=== PATIENT | male | born 1985 | race Caucasian/White ===

== ENCOUNTER 2016-08-31 12:59 | Inpatient (IN) | payer MEDICARE, MEDICAID ==
--- NOTE | 2016-08-31 13:49 | ED ---
Psychiatric Complaint - HPI Summary HPI Summary: Patient is bipolar and presents with SI. He says he cycles through these thoughts every 6 months, even though he is compliant with his medications and is seeing his counselor regularly. He denies prior attempts, but does have a plan. He denies SI. He was hospitalized at [facility] over the summer. - History Of Current Complaint Chief Complaint: EDMentalHealth Time Seen by Provider: 08/31/16 13:33 Hx Obtained From: Patient Onset/Duration: Gradual Onset Timing: Constant Severity Initially: Severe Severity Currently: Severe Character: Depressed Aggravating Factor(s): Nothing Alleviating Factor(s): Nothing Associated Signs And Symptoms: Positive: Sleep Disturbance, Social Withdrawal Related History: Positive For: Prior Psychiatric Issues Has Suicidal: Reports: Thoughts, With A Plan - Allergies/Home Medications Allergies/Adverse Reactions: Allergies Allergy/AdvReac Type Severity Reaction Status Date / Time No Known Allergies Allergy Verified 08/31/16 20:47 Home Medications: Home Medications Bupropion HCl Xl 150 mg PO DAILY 08/31/16 [History Confirmed 08/31/16] Carvedilol 3.125 mg PO BID 08/31/16 [History Confirmed 08/31/16] Cimzia 200 mg SUBCUT 08/31/16 [History] Fluvoxamine Er 200 mg PO QAM 08/31/16 [History Confirmed 08/31/16] Latuda 80 mg PO BEDTIME 08/31/16 [History Confirmed 08/31/16] Levothyroxine TAB* 75 mcg PO QAM 08/31/16 [History Confirmed 08/31/16] Methylphenidate ER TAB* 54 mg PO QAM MDD 1 tablet 08/31/16 [History Confirmed ] Pantoprazole Sodium Dr 40 mg PO DAILY 08/31/16 [History Confirmed 08/31/16] Valsartan 160 mg PO DAILY 08/31/16 [History Confirmed 08/31/16] traZODone TAB* 50 mg PO BEDTIME 08/31/16 [History Confirmed 08/31/16] PMH/Surg Hx/FS Hx/Imm Hx Infectious Disease History: Yes Infectious Disease History: Denies: Traveled Outside the [place] in Last 30 Days - Family History Known Family History: Positive: None - Social History Occupation: Unemployed Lives: Alone Alcohol Use: None Substance Use Type: Reports: None Smoking Status (MU): Never Smoked Tobacco Review of Systems Positive: Depressed All Other Systems Reviewed And Are Negative: Yes Physical Exam Triage Information Reviewed: Yes Vital Signs On Initial Exam: Initial Vitals Temp Pulse Resp BP Pulse Ox 96.7 F 66 16 155/112 100 08/31/16 13:01 08/31/16 13:01 08/31/16 13:01 08/31/16 13:01 08/31/16 13:01 Vital Signs Reviewed: Yes Appearance: Positive: Well-Appearing, No Pain Distress, Well-Nourished Skin: Positive: Warm, Skin Color Reflects Adequate Perfusion, Dry, Soft Head/Face: Positive: Normal Head/Face Inspection Eyes: Positive: EOMI, BILLY, Conjunctiva Clear ENT: Positive: Hearing grossly normal Respiratory/Lung Sounds: Positive: Clear to Auscultation, Breath Sounds Present Cardiovascular: Positive: RRR Abdomen Description: Positive: Nontender, Soft Bowel Sounds: Positive: Present Musculoskeletal: Negative: Edema Left, Edema Right Neurological: Positive: Sensory/Motor Intact, Alert, Oriented to Person Place, Time, Normal Gait Psychiatric: Positive: Affect/Mood Appropriate - patient is cooperative, pleasant and engaging during exam AVPU Assessment: Alert Diagnostics - Vital Signs Vital Signs Temp Pulse Resp BP Pulse Ox 08/31/16 13:01 96.7 F 66 16 155/112 100 - Laboratory Result Diagrams: 08/31/16 14:00 08/31/16 14:00 Lab Statement: Any lab studies that have been ordered have been reviewed, and results considered in the medical decision making process. Course/Dx - Differential Dx/Clinical Impression Differential Diagnosis/HQI/PQRI: Positive: Acute Psychosis, Anxiety, Bipolar Disorder, Depression, Schizophrenia, Suicidal Ideation Provider Diagnosis: Persistent mood [affective] disorder, unspecified - Physician Notifications Patient Is Medically Stable For: Psych Evaluation Discharge - Discharge Plan Condition: Stable Disposition: ADMITTED TO [facility]
[2016-08-31 14:09] LABS: Hematocrit 48 % (42-52); Hemoglobin 16.1 g/dl (14.0-18.0); Mean Corpuscular HGB Conc 34 g/dl (31-36); Mean Corpuscular Hemoglobin 31 pg (27-31); Mean Corpuscular Volume 91 fL (80-94); Mean Platelet Volume 9 um3 (7.4-10.4); Red Blood Count 5.29 10^6/ul (4.0-5.4); Red Cell Distribution Width 14 % (10.5-15); White Blood Count 10.2 10^3/ul (3.5-10.8)
[2016-08-31 14:15] LABS: Urine Bacteria Absent (Absent); Urine Bilirubin Negative (Negative); Urine Glucose Negative (Negative); Urine Nitrite Negative (Negative)
[2016-08-31 14:25] LABS: ALT 20 U/L (7-52); AST 19 U/L (13-39); Albumin 4.2 g/dL (3.2-5.2); Alkaline Phosphatase 64 U/L (34-104); Anion Gap 4 mmol/L (2-11); BUN/Creatinine Ratio 15.6 (8-20); Blood Urea Nitrogen 26 mg/dL (6-24); CO2 Carbon Dioxide 29 mmol/L (22-32); Calcium 9.4 mg/dL (8.6-10.3); Chloride 104 mmol/L (101-111); EGFR African American 61.2 (>60); EGFR Non-African American 47.6 (>60); Globulin 2.9 g/dL (2-4); Glucose 81 mg/dL (70-100); Potassium 3.9 mmol/L (3.5-5.0); Sodium 137 mmol/L (133-145); Total Protein 7.1 g/dL (6.4-8.9)
[2016-08-31 14:32] LABS: Benzodiazepine Urine Screen None Detected (None Detect)
[2016-08-31 14:47] LABS: Acetaminophen < 15 mcg/mL; Alcohol < 10 mg/dL (<10); Salicylate < 2.50 mg/dL (<30)
[2016-08-31 14:57] LABS: TSH (Thyroid Stimulating Horm) 2.02 mcIU/mL (0.34-5.60)
[2016-08-31] MEDS ORDERED: traZODone TAB* 50 MG TAB PO PRN (23:59)
[2016-09-01] MEDS: Carvedilol TAB* 3.125 MG PO SCH ×3 (01:02→17:02)
[2016-09-01] MEDS: CMCS: Lurasidone (NF) 40 MG TAB PO SCH ×2 (01:03→20:42)
[2016-09-01] MEDS: Valsartan TAB* 160 MG PO SCH ×2 (01:04→20:41)
--- NOTE | 2016-09-01 01:57 | PN ---
Progress Note - Progress Note Note: Patient was a sign off from Niles Barnett PA-C. Patient is suicidal however stable without complaints at this time. Is being admitted to [facility] per mental health.
[2016-09-01] MEDS: Levothyroxine TAB* 75 MCG TAB PO SCH (06:05)
[2016-09-01] MEDS: Omeprazole CAP* 20 MG PO SCH (09:48)
[2016-09-01] MEDS: Methylphenidate ER TAB* 18 MG PO SCH (09:48)
[2016-09-01] MEDS: BuPROPion XL* 150 MG TAB.XL PO SCH (09:48)
--- NOTE | 2016-09-01 21:51 | HP ---
HISTORY AND PHYSICAL: DATE OF ADMISSION: 08/31/16 IDENTIFYING DATA: Herbert is a 31-year-old single, unemployed, domiciled, male, who drove himself to the hospital last night to request admission. CHIEF COMPLAINT: "I have been feeling lonely and hopeless!" HISTORY OF PRESENT ILLNESS: Herbert relates that he has previous diagnoses of bipolar disorder and ADHD and he was last admitted at [facility] [place] last February 2016 with similar symptoms. He endorses a 2-week history of low mood, increased sleep, decreased interest, feelings of worthlessness and helplessness and loneliness. He came to the hospital when he started having thoughts of suicide by taking an overdose of his pills.He denies substance abuse or nonadherence to his prescribed medication. He describes stressors of feeling isolated, longing for a relationship with a woman. 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 REVIEW OF PSYCHIATRIC SYMPTOMS: He describes patterns of feeling depressed and suicidal almost every 6 months. He denies difficulty with appetite, level of energy, attention, and concentration. Although he reports having a diagnosis of bipolar disorder, he denies having ever experienced manic or hypomanic symptoms. He endorses anxiety in social situations. He denies excessive worrying, feeling tense or irritable. He denies obsessive thoughts or compulsive rituals. He denies psychotic symptoms. He endorsed occasional paranoid ideation. PAST PSYCHIATRIC HISTORY: One admission here in 2004, was diagnosed with unspecified mood disorder with paranoid personality disorder. He had recent admission at [facility] [place] in February 2016 for 5 days again because of the depression and suicidal ideation. He reports diagnoses of depression and ADHD His outpatient care is at [facility] where he sees a therapist weekly and he sees Dr. Mckenna every 3 to 4 months. His last appointment was 2 months ago. He came in on methylphenidate ER 54 mg q.a.m., Wellbutrin 150 mg daily, Trazodone 50 mg at bedtime and Latuda 80 mg at bedtime. SUICIDE/HOMICIDE HISTORY: He denies previous brianna suicide attempt or history of self-injury. He denies any history of violence. He denies legal problems. PAST MEDICAL HISTORY: Remarkable for polycystic kidney disease, hypothyroidism , high blood pressure, and hypercholesterolemia. He is followed in [facility] by Dr. Rowdy Clements. MEDICATIONS: He is prescribed: 1. Carvedilol 3.125 mg b.i.d. 2. Levothyroxine 75 mcg p.o. daily. 3. Omeprazole 20 mg daily. 4. Valsartan 160 mg at bedtime. FAMILY HISTORY: The patient described family history of depression in his (now ) mother. Sister and nieces also have depression. He denies any family history of completed suicides. PERSONAL AND SOCIAL HISTORY: He was raised in [place], [place], by his single mother, who worked in this hospital as a nurse. He has one sister. He graduated high school, briefly attended [employer] for music , later returned for three semesters and then again stopped because of financial reasons. His father has never been a consistent presence in his life. Herbert reports being heterosexual. He denies currently dating, but asserts that he has been in relationships with women in the past, the longest relationship last 1-1/2 years and he has had intercourse with women in ways he finds satisfying. He enjoys [employer], video games, [employer], and working with children. He has aspiration of creating a band or being a member of a music band. 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 He quit his job last June because he no longer enjoyed it. He is receiving survivors benefits from social security that he uses to pay his bills. REVIEW OF MEDICAL SYMPTOMS: Negative. PHYSICAL EXAMINATION GENERAL: He is a moderately obese 31-year-old white male, who does not appear to be in any acute physical distress. He is alert and oriented x3. VITAL SIGNS: On admission, blood pressure 149/85, pulse is 63, respirations 18 , and temperature 97.3. HEENT: Head is atraumatic, normocephalic, symmetrical. Eyes: PERRLA. Tympanic membranes intact. Sclerae anicteric. Conjunctivae clear. NECK: Trachea midline, freely mobile. No cervical lymphadenopathy. No nuchal rigidity. LUNGS: Clear to auscultation bilaterally. HEART: Regular rate and rhythm. S1, S2. No murmurs, gallops, or rubs. BREAST EXAM: No mass or discharge. ABDOMEN: Soft and nontender. No mass, organomegaly, or rebound tenderness. No scars noted. Active bowel sounds in all four quadrants. EXTREMITIES: No clubbing, cyanosis, edema, or varicosities noted. Pulses are equal and adequate in all four extremities. NEUROLOGIC: Cranial nerves II through XII are intact. Cerebellar function intact. Muscle strength grade 5/5 in all four extremities. STRUCTURAL EXAM: The patient examined in both supine and upright positions. No gross AP or lateral asymmetry. Gait and movement are within normal limits. GENITALIA: Exam not performed. RECTAL: Exam not performed. SKIN: Skin texture, turgor, and pigmentation are within normal limits. 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 He is adequately groomed, casually dressed. He is oddly related, but is cooperative with the interview process. No abnormal movements are observed. He exhibits normal psychomotor activity. He endorses depressed mood. His affect is constricted. He also describes passive wish, but denies active suicidal ideation and he contracts for safety and reports feeling safe in this setting. He is alert and oriented to time, place, person. Attention, memory, and concentration are all fair. Fund of knowledge is adequate. Intelligence is estimated to be in normal range. LABORATORY DATA: On admission, his CBC was within normal limits. Complete metabolic panel shows BUN of 26 and creatinine of 1.67. TSH is normal at 2.02. Urinalysis shows 1+ protein and presence of squamous epithelial cells. Toxicology screen is negative for all the tested substances. SUMMARY: Third lifetime inpatient psychiatric admission for this 31-year-old male with a history of suicidal ideation, but no previous brianna attempt and no self- injury, current outpatient care at [facility], current trial of methylphenidate ER, Wellbutrin XL, Trazodone and Latuda, who was self-referred with complaints of worsening depressive symptoms and thoughts of taking an overdose of a prescribed medication. Medical history is remarkable for polycystic kidney disease, hypothyroidism, hypertension, hypercholesterolemia, and obesity. There is family history of depression in maternal relatives, but he is unaware of any family history of completed suicide. He described stressors of feeling lonely, being currently unemployed, recent falling out with three of his friends. During the interview, he presented as somewhat oddly related, he described a lifelong history impairment in his social interactions suggestive of an autism spectrum. DIAGNOSTIC IMPRESSIONS: 1. Unspecified depressive disorder. 2. Rule out Persistent depressive disorder. 3. Rule out Major depressive disorder, recurrent, moderate, without psychotic features. 4. Consideration for autism spectrum disorder. 5. Attention deficit/hyperactivity disorder, by history. TREATMENT PLAN: Admit to Mental Health Unit, 15-minute checks, full code status. Legal status is voluntary. Initiate comprehensive, milieu, individual, and group psychotherapeutic support, medication management will involve continuing his outpatient regimen of medication and contacting his outpatient psychiatric providers. Discharge planning will involve coordination of his aftercare with [facility]. [id number]/CPS #: [id number] JENNIFER
[2016-09-02] MEDS: Levothyroxine TAB* 75 MCG TAB PO SCH (06:40)
[2016-09-02] MEDS: Methylphenidate ER TAB* 18 MG PO SCH (08:51)
[2016-09-02] MEDS: BuPROPion XL* 150 MG TAB.XL PO SCH (08:51)
[2016-09-02] MEDS: Omeprazole CAP* 20 MG PO SCH (08:51)
[2016-09-02] MEDS: Carvedilol TAB* 3.125 MG PO SCH ×2 (08:51→16:11)
--- NOTE | 2016-09-02 19:49 | PN ---
Progress Note - Progress Note Note: Patient told there are two patients on the unit (did not disclose their names) who have tested positive for Influenza A and I am recommending taking Tamiflu as a prophylactic measure. I made it clear this was optional. He declined the treatment after hearing of the indications, risks, benefits and alternatives.
[2016-09-02] MEDS: CMCS: Lurasidone (NF) 40 MG TAB PO SCH (21:31)
[2016-09-02] MEDS: Valsartan TAB* 160 MG PO SCH (21:32)
[2016-09-03] MEDS: Levothyroxine TAB* 75 MCG TAB PO SCH (06:07)
[2016-09-03] MEDS: Methylphenidate ER TAB* 18 MG PO SCH (09:08)
[2016-09-03] MEDS: BuPROPion XL* 150 MG TAB.XL PO SCH (09:08)
[2016-09-03] MEDS: Omeprazole CAP* 20 MG PO SCH (09:08)
[2016-09-03] MEDS: Carvedilol TAB* 3.125 MG PO SCH ×2 (09:09→17:11)
[2016-09-03] MEDS: Oseltamivir CAP* 75 MG PO SCH (09:10)
--- NOTE | 2016-09-03 12:02 | PN ---
MHU: Group Therapy Note - Service Type Service Type: [id number] Group Psychotherapy - Herbert discussed relevant history in a topical fashion, disclosing his experience of having suicidal thoughts and seeking treatment. He denies ongoing SI, and expressed hopes of attaining discharge, citing quick improvement in mood and gratitude for his life and prospects.
--- NOTE | 2016-09-03 16:31 | PN ---
Subjective - Subjective Service Type: 15234 Hosp care 15 min low complexity Subjective: The patient says that he feels markedly better than the time of admission. "It' s helped me so much being around people who have the same problems." He feels safe going home and does request discharge. He is tolerating his medications well and states that he has good relationships with his providers at [facility], including his psychiatrist there, Dr. Mckenna. He denies SI or HI. Objective - Appearance Appearance: Well Developed/Nourished Dysmorphic Features: No Hygiene: Normal Grooming: Well Kept - Behavior Psychomotor Activities: Normal Exhibits Abnormal Movement: No - Attitude and Relatedness Attitude and Relatedness: Cooperative Eye Contact: Good - Speech Quality: Unpressured Latencies: Normal Quantity: Appropriate - Mood Patient's Decription of Mood: "Good" - Affect Observed Affect: Good Affect Consistent with: Euthymia - Thought Process Patient's Thought Process: Coherent Thought Content: No Passive Wish, No Suicidal Planning, No Homicidal Ideation, No Paranoid Ideation - Sensorium Experiencing Hallucinations: No, Sensorium is Clear Type of Hallucinations: Visual: No, Auditory: No, Command: No - Level of Consciousness Level of Consciousness: Alert Orientation: Yes Intact, Yes Orientated to Time, Yes Orientated to Place, Yes Orientated to Person - Impulse Control Impulse Control: Intact - Insight and Judgement Insight and Judgement: Good - Group Participation Particating in Group Activities: Yes - Medication Management Medication Management Adherence: Yes Assessment - Assessment Merits Inpatient Hospitalization: Consolidate Improvements, Pending Safe DC Plan Inpatient DSM-IV Dx: MDD, recurrent, severe without psychotic features. Clinical Impression: 31 y.o. single, white male with a history of depression admitted over the weekend voluntarily due to complaints of depression and SI. Plan - Plan Treatment Plan: Name: EPIFANIO KUHN Birthdate: 1985 [id number] The patient seems to have improved dramatically with conservative milieu treatment. He is tolerating meds well and requesting discharge. We will keep him an extra day to make sure his SI is resolved. Likely d/c to follow up with [facility]. Continued Medication Management: Continue Outpt Medication Medications: Current Medications Bupropion HCl (Wellbutrin Xl *) 150 mg PO DAILY GUI Last Admin: 09/03/16 09:08 Dose: 150 mg Carvedilol (Coreg Tab*) 3.125 mg PO BID WITH MEALS [facility] Last Admin: 09/03/16 09:09 Dose: 3.125 mg Levothyroxine Sodium (Synthroid Tab*) 75 mcg PO DAILY@0600 [facility] Last Admin: 09/03/16 06:07 Dose: 75 mcg Lurasidone HCl (Latuda (Nf)) 80 mg PO BEDTIME [facility] Last Admin: 09/02/16 21:31 Dose: 80 mg Methylphenidate HCl (Concerta Er Tab*) 54 mg PO DAILY [facility] Last Admin: 09/03/16 09:08 Dose: 54 mg Omeprazole (Prilosec Cap*) 20 mg PO DAILY@0730 [facility] Last Admin: 09/03/16 09:08 Dose: 20 mg Oseltamivir Phosphate (Tamiflu Cap*) 75 mg PO DAILY [facility] Stop: 09/12/16 09:01 Last Admin: 09/03/16 09:10 Dose: Not Given Trazodone HCl (Desyrel Tab*) 50 mg PO BEDTIME PRN PRN Reason: INSOMNIA Valsartan (Diovan Tab*) 160 mg PO BEDTIME [facility] Last Admin: 09/02/16 21:32 Dose: 160 mg - Discharge Plan Discharge Plan: Outpatient Follow Up
[2016-09-03] MEDS: CMCS: Lurasidone (NF) 40 MG TAB PO SCH (21:11)
[2016-09-03] MEDS: Valsartan TAB* 160 MG PO SCH (21:11)
[2016-09-04 07:45] VITALS: BP 148/88
[2016-09-04] MEDS: BuPROPion XL* 150 MG TAB.XL PO SCH (07:55)
[2016-09-04] MEDS: Omeprazole CAP* 20 MG PO SCH (07:55)
[2016-09-04] MEDS: Methylphenidate ER TAB* 18 MG PO SCH (07:55)
[2016-09-04] MEDS: Carvedilol TAB* 3.125 MG PO SCH (07:56)
[2016-09-04] MEDS: Levothyroxine TAB* 75 MCG TAB PO SCH (07:56)
--- NOTE | 2016-09-04 11:11 | PN ---
MHU: Group Therapy Note - Service Type Service Type: [id number] Group Psychotherapy - Cognitive Behavioral Group Therapy ( CBT):Patient was attentive and participatory in CBT programming this morning, and remained in good behavioral control. Patient expressed positive insights regarding relevant treatment interventions and goals.
[2016-09-04] MEDS: Oseltamivir CAP* 75 MG PO SCH (11:13)
--- NOTE | 2016-09-05 00:22 | DS ---
DISCHARGE SUMMARY: DATE OF ADMISSION: 08/31/16 DATE OF DISCHARGE: 09/04/16 DISCHARGE DIAGNOSES: As follows: Coldiron I: Unspecified depressive disorder, rule out major depressive disorder versus dysthymic disorder; attention deficit disorder by history. Coldiron II: Deferred. Coldiron III: Significant for polycystic kidney disease, hypothyroidism, high blood pressure, and hypercholesterolemia. Coldiron IV: Severe primary support stressors. Coldiron V: At the time of admission was 35 and at the time of discharge is 60. CONDITION AT THE TIME OF DISCHARGE: Stable. The patient is steadfastly denying suicidal ideations as he has done so far several days now. He states that the group setting has made him feel less isolated and he is eager to get out and see his therapist as well as his psychiatrist at [facility]. The patient is future oriented stating that he would like to go out and get a job working with children and he is certainly willing to continue his medications as well as other followup treatments in the community. MENTAL STATUS EXAM: At the time of discharge, the patient is a young white male , balding hair, who is clean and well-groomed, wearing a black T-shirt and jeans. He is calm and cooperative, easy to establish rapport with. Speech has normal rate, tone, and volume. Mood is euthymic with full affect. Thought process is linear and goal directed. Thought content is significant for his desire to leave the hospital and get a job in some type of capacity in which he can provide service and support to children. He denies suicidal or homicidal ideations. He denies auditory or visual hallucinations and there is no evidence of psychotic thinking. Insight and judgment appeared to be fair given his willingness to follow up with outpatient support. Cognitively, he is awake and alert with what appeared to be an average intellect. DISCHARGE INSTRUCTIONS: To the patient are as follows: A. Medications: The patient is takin. Concerta ER 54 mg p.o. q.a.m. 2. Wellbutrin 150 mg p.o. daily. 3. Trazodone 50 mg at nighttime. 4. Latuda 80 mg at nighttime. 5. Fluvoxamine 100 mg daily. 6. Carvedilol 3.125 mg twice daily. 7. Synthroid 75 mcg p.o. daily. 8. Omeprazole 20 mg daily. 9. Valsartan 160 mg p.o. q.h.s. B. Diet: Regular. C. Activities: As tolerated. The patient is a nonsmoker. D. Followup care: He will be following up with [facility] where his therapist is Yoan Tanner and his psychiatrist is Dr. Mckenna. These followups will both be within 1 week of discharge. HOSPITAL COURSE: PART A: Reason for admission: The patient is a 31-year-old single, unemployed , domicile white male, who drove himself to hospital last night requesting admission for suicidal ideations. He relates that he has a prior history of bipolar disorder and ADHD and was last admitted at [facility] in February of 2016 with similar symptoms. What he was endorsing at the time of admission was a 2-week history of low mood, increased sleep, decreased interest , feelings of worthlessness and helplessness as well as loneliness. He came to the hospital when he started having thoughts of suicide by taking an overdose of his pills. He denies substance abuse or nonadherence to his prescribed medications. He describes stressors of feeling isolated, longing for relationship with a woman. 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 PART B: Psychiatric treatment rendered: The patient was admitted to the adult behavioral health unit and placed on q.30-minute checks for his own safety. He was calm, cooperative, and polite throughout his hospitalization. The patient experienced a rather rapid resolution of his suicidality once he got on the unit and was an almost immediate participant in milieu activities. He is quite social with his peers, playing chess and board games, and discussing his peer difficulties with them in a supportive role. We noted that his affect brightened immediately upon introduction to the unit and he seemed to do well with social interactions. What he was telling me is that recently he ended three friendships because there were three people in his life who had been consistently borrowing money and not paying him back and taking advantage of his generosity by getting rides, places from him without reciprocating. He states that he does not need friendships like this and would like to be more collaborative with friends stating that he does have some friends who do not take advantage of him. He is saying at this point that he wants to reach out to those people in his life and build more social interactions with them. He is also looking to increase the amount of activities that he does socially through the [facility]. He does have followups in place with both of his clinicians there and he is requesting discharge indicating that he is safe to go home. We do not feel that there is any legal justification for keeping him any further on an involuntary basis and so he is discharged to the community to follow up in a less restrictive setting. [id number]/CPS #: [id number] JENNIFER
== END 2016-09-04 14:15 | disposition home or self-care (01) | DRG 881 ==
LOC: ED 12:59 → BSU 23:32
PROVIDERS: ADMIT Psychiatry & Neurology Psychiatry; ATTEND Psychiatry & Neurology Psychiatry
PROC: GZHZZZZ Group Psychotherapy (ICD-10-PCS; principal; 2016-08-31)
DX: F32.9 Major depressive disorder, single episode, unspecified (principal); Q61.3 Polycystic kidney, unspecified; F34.1 Dysthymic disorder; F90.9 Attention-deficit hyperactivity disorder, unspecified type; E03.9 Hypothyroidism, unspecified; I10 Essential (primary) hypertension; E78.00 Pure hypercholesterolemia, unspecified; F60.0 Paranoid personality disorder; Z81.8 Family history of other mental and behavioral disorders; E66.9 Obesity, unspecified; Z68.27 Body mass index [BMI] 27.0-27.9, adult
CPT/HCPCS: 36415; 80053; 80307; 80320; 80329; 81003; 81015; 84443; 85025; 90853; 99222; 99231; 99238; A9270-GY; G0480

== ENCOUNTER 2017-01-14 15:44 | Emergency (ER) | payer MEDICARE, MEDICAID ==
[2017-01-14] MEDS: LORazepam TAB(*) 1 MG PO ONE ×2 (16:12→16:14)
[2017-01-14 16:32] LABS: Benzodiazepine Urine Screen None Detected (None Detect)
--- NOTE | 2017-01-14 16:34 | ED ---
Psychiatric Complaint - HPI Summary HPI Summary: 31M presents with suicidal thoughts. He states he was going to overdose by taking all his medication. He states that last time he was admitted was here a couple months ago. He denies any substance abuse. He states that he has bipolar. He says this past years his bipolar does not feel well controlled. He can not identify a reason for these thoughts he is just fed up with everything. - History Of Current Complaint Chief Complaint: EDMentalHealth Time Seen by Provider: 01/14/17 16:00 - Allergies/Home Medications Allergies/Adverse Reactions: Allergies Allergy/AdvReac Type Severity Reaction Status Date / Time No Known Allergies Allergy Verified 08/31/16 20:47 Home Medications: Home Medications Carvedilol TAB* [Coreg TAB*] 3.125 mg PO BID 01/14/17 [History Confirmed ] Fluvoxamine Maleate [Fluvoxamine Maleate ER] 200 mg PO DAILY 01/14/17 [History Confirmed 01/14/17] Levothyroxine TAB* [Synthroid TAB*] 75 mcg PO 0800 01/14/17 [History Confirmed 01/14/17] Methylphenidate ER TAB* [Concerta ER TAB*] 54 mg PO QAM 01/14/17 [History Confirmed 01/14/17] PMH/Surg Hx/FS Hx/Imm Hx Endocrine/Hematology History: Reports: Hx Thyroid Disease Cardiovascular History: Reports: Hx Hypercholesterolemia, Hx Hypertension History: Reports: Other Problems/Disorders - "polycystic renal disease" Musculoskeletal History: Reports: Hx Arthritis Sensory History: Reports: Hx Contacts or Glasses Opthamlomology History: Reports: Hx Contacts or Glasses Psychiatric History: Reports: Hx of Violent Episodes Against Others Denies: Hx Eating Disorder Infectious Disease History: Denies: Traveled Outside the [place] in Last 30 Days - Family History Known Family History: Positive: None - Social History Alcohol Use: None Substance Use Type: Reports: None Smoking Status (MU): Never Smoked Tobacco Review of Systems Negative: Fever Negative: Chest Pain Negative: Shortness Of Breath Positive: Depressed All Other Systems Reviewed And Are Negative: Yes Physical Exam Triage Information Reviewed: Yes Vital Signs Reviewed: Yes Appearance: Positive: Well-Appearing Skin: Positive: Warm, Dry Head/Face: Positive: Normal Head/Face Inspection Eyes: Positive: Normal, Conjunctiva Clear ENT: Positive: Normal ENT inspection, Pharynx normal, TMs normal Respiratory/Lung Sounds: Positive: Clear to Auscultation, Breath Sounds Present Cardiovascular: Positive: Normal, RRR Abdomen Description: Positive: Nontender, Soft Bowel Sounds: Positive: Present - [place] Coma Scale Coma Scale Total: 15 Diagnostics - Laboratory Lab Results: Lab Results 01/14/17 Range/Units 15:57 Urine Opiates Screen None detected (None Detect) Ur Barbiturates Screen None detected (None Detect) Ur Phencyclidine Scrn None detected (None Detect) Ur Amphetamines Screen None detected (None Detect) U Benzodiazepines Scrn None detected (None Detect) Urine Cocaine Screen None detected (None Detect) U Cannabinoids Screen None detected (None Detect) Result Diagrams: 01/14/17 16:35 01/14/17 16:35 Lab Statement: Any lab studies that have been ordered have been reviewed, and results considered in the medical decision making process. Course/Dx - Course Course Of Treatment: 31M presents with suicidal thoughts. He states he was going to overdose by taking all his medication. He denies any substance abuse. He states that he has bipolar. He says this past years his bipolar does not feel well controlled. He can not identify a reason for these thoughts he is just fed up with everything. clear for MHE. signed out to nisreen Ramesh pending MHE - Differential Dx/Clinical Impression Differential Diagnosis/HQI/PQRI: Positive: Bipolar Disorder, Depression, Suicidal Ideation Provider Diagnosis: Persistent mood [affective] disorder, unspecified Discharge - Discharge Plan Condition: Good Disposition: OTHER Discharge Disposition Comment: signed out to Nisreen EDWARDS Referrals: Non Staff,Doctor [Primary Care Provider] -
[2017-01-14 16:42] LABS: Hematocrit 45 % (42-52); Hemoglobin 15.4 g/dl (14.0-18.0); Mean Corpuscular HGB Conc 34 g/dl (31-36); Mean Corpuscular Hemoglobin 31 pg (27-31); Mean Corpuscular Volume 91 fL (80-94); Mean Platelet Volume 9 um3 (7.4-10.4); Red Blood Count 4.96 10^6/ul (4.0-5.4); Red Cell Distribution Width 13 % (10.5-15); White Blood Count 9.5 10^3/ul (3.5-10.8)
[2017-01-14 16:55] LABS: Urine Bacteria Absent (Absent); Urine Bilirubin Negative (Negative); Urine Glucose Negative (Negative); Urine Nitrite Negative (Negative)
[2017-01-14 16:59] LABS: ALT 17 U/L (7-52); AST 19 U/L (13-39); Albumin 4.1 g/dL (3.2-5.2); Anion Gap 5 mmol/L (2-11); BUN/Creatinine Ratio 15.3 (8-20); Blood Urea Nitrogen 29 mg/dL (6-24); CO2 Carbon Dioxide 29 mmol/L (22-32); Calcium 9.4 mg/dL (8.6-10.3); Chloride 104 mmol/L (101-111); EGFR African American 52.8 (>60); Globulin 3.2 g/dL (2-4); Glucose 81 mg/dL (70-100); Potassium 4.4 mmol/L (3.5-5.0); Sodium 138 mmol/L (133-145); Total Protein 7.3 g/dL (6.4-8.9)
[2017-01-14 17:21] LABS: Acetaminophen < 15 mcg/mL; Alcohol < 10 mg/dL (<10); Salicylate < 2.50 mg/dL (<30)
[2017-01-14 18:52] LABS: Alkaline Phosphatase 61 U/L (34-104)
== END 2017-01-14 20:14 ==
LOC: ED 15:44
DX: F34.9 Persistent mood [affective] disorder, unspecified (principal); R45.851 Suicidal ideations; F32.9 Major depressive disorder, single episode, unspecified
CPT/HCPCS: 36415; 80053; 80307; 80320; 80329; 81003; 81015; 84443; 85025; 99283; A9270-GY; G0480

== ENCOUNTER 2018-03-26 11:09 | Inpatient (IN) | payer MEDICARE, MEDICAID ==
--- NOTE | 2018-03-26 12:04 | ED ---
Psychiatric Complaint - HPI Summary HPI Summary: This patient is a 33 year old M presenting to [facility] with a chief complaint of SI with a plan to take the entirety of his rx medications for the past month. Pt denies suicide attempt in the past, and endorses a desire for a MHE. - History Of Current Complaint Chief Complaint: EDMentalHealth Time Seen by Provider: 03/26/18 11:53 Hx Obtained From: Patient Onset/Duration: Gradual Onset, Lasting Weeks, Still Present Timing: Constant Severity Initially: Moderate Severity Currently: Moderate Character: Depressed Aggravating Factor(s): Nothing Alleviating Factor(s): Nothing Associated Signs And Symptoms: Positive: Negative Related History: Positive For: Prior Psychiatric Issues Has Suicidal: Reports: Thoughts, With A Plan. Denies: Demonstrates Gesture, Has Prior Attempt(s) Has Homicidal: Denies: Thoughts - Allergies/Home Medications Allergies/Adverse Reactions: Allergies Allergy/AdvReac Type Severity Reaction Status Date / Time No Known Allergies Allergy Verified 03/26/18 11:14 Home Medications: Home Medications BuPROPion XL* [Bupropion XL*] 300 mg PO QAM 03/26/18 [History Confirmed 03/26/18 ] Fluvoxamine Maleate [Fluvoxamine Maleate ER] 200 mg PO QAM 03/26/18 [History Confirmed 03/26/18] LORazepam TAB(*) [Ativan 0.5 MG TAB (*)] 0.5 mg PO TID PRN 03/26/18 [History Confirmed 03/26/18] Methylphenidate HCl [Concerta] 54 mg PO QAM 03/26/18 [History Confirmed 03/26/18 ] PMH/Surg Hx/FS Hx/Imm Hx Endocrine/Hematology History: Reports: Hx Thyroid Disease Cardiovascular History: Reports: Hx Hypercholesterolemia, Hx Hypertension Respiratory History: Denies: Hx Lung Cancer GI History: Denies: Hx Ileostomy History: Reports: Other Problems/Disorders - "polycystic renal disease" Musculoskeletal History: Reports: Hx Arthritis Sensory History: Reports: Hx Contacts or Glasses Denies: Hx Deafness Opthamlomology History: Reports: Hx Contacts or Glasses Denies: Hx Legally Blind EENT History: Denies: Hx Deafness Neurological History: Denies: Hx Dementia Psychiatric History: Reports: Hx of Violent Episodes Against Others Denies: Hx Eating Disorder Infectious Disease History: No Infectious Disease History: Denies: Traveled Outside the US in Last 30 Days - Family History Known Family History: Positive: Hypertension - Social History Occupation: Employed Part-time Lives: Alone Alcohol Use: None Hx Substance Use: No Substance Use Type: Reports: None Hx Tobacco Use: No Smoking Status (MU): Never Smoked Tobacco Review of Systems Negative: Fever Positive: no symptoms reported Positive: Depressed, Other - SI with plan All Other Systems Reviewed And Are Negative: Yes Physical Exam - Summary Physical Exam Summary: General: well-appearing, no pain distress Skin: warm, color reflects adequate perfusion, dry Head: normal Eyes: EOMI, BILLY ENT: normal Neck: supple, non-tender Respiratory: CTA, breath sounds present Cardiovascular: RRR Abdomen: soft, non-tender Bowel: present Musculoskeletal: normal, strength/ROM intact Neurological: sensory/motor intact, A&O x3 Psychological: affect/mood appropriate Triage Information Reviewed: Yes Vital Signs On Initial Exam: Initial Vitals Temp Pulse Resp BP Pulse Ox 97.5 F 69 12 155/89 97 03/26/18 11:11 03/26/18 11:11 03/26/18 11:11 03/26/18 11:11 03/26/18 11:11 Vital Signs Reviewed: Yes Diagnostics - Vital Signs Vital Signs Temp Pulse Resp BP Pulse Ox 03/26/18 11:11 97.5 F 69 12 155/89 97 - Laboratory Result Diagrams: 03/26/18 13:03 03/26/18 13:03 Lab Statement: Any lab studies that have been ordered have been reviewed, and results considered in the medical decision making process. Course/Dx - Differential Dx/Clinical Impression Provider Diagnosis: Depressive disorder, not elsewhere classified, Mental health problem - Physician Notifications Discussed Care Of Patient With: Darío Lowery Time Discussed With Above Provider: 14:21 Instructed by Provider To: Other - Per ANURADHA Terrazas, Pt will be admitted to the MHU on voluntary status with a dx of depressive disorder NOS. Discharge - Sign-Out/Discharge Documenting (check all that apply): Patient Departure - admit TO MHU All imaging exams completed and their final reports reviewed: No Studies - Discharge Plan Condition: Stable Disposition: ADMITTED TO [facility] - Billing Disposition and Condition Condition: STABLE Disposition: Admitted to [facility] - Attestation Statements Document Initiated by Scribe: Yes Documenting Scribe: Kam Thomas Provider For Whom Joel is Documenting (Include Credential): Dr. Kamari Hernández MD Scribe Attestation: I, Kam Thomas, scribed for Dr. Kamari Hernández MD on 03/26/18 at 1809. Scribe Documentation Reviewed: Yes Provider Attestation: The documentation as recorded by the Kam beyer accurately reflects the service I personally performed and the decisions made by me, Dr. Kamari Hernández MD
[2018-03-26 12:12] LABS: Urine Appearance Clear; Urine Blood 1+ (Negative); Urine Color Straw; Urine Ketones Negative (Negative); Urine Protein Negative (Negative); Urine Red Blood Cell Trace(0-2/hpf) (Absent); Urine Specific Gravity 1.012 (1.010-1.030); Urine Urobilinogen Negative (Negative); Urine White Blood Cell Absent (Absent)
[2018-03-26 13:10] LABS: ABS Basophils 0.1 10^3/ul (0-0.2); ABS Eosinophils 0.1 10^3/ul (0-0.6); ABS Lymphocytes 2.3 10^3/ul (1.0-4.8); ABS Monocytes 0.8 10^3/ul (0-0.8); ABS Neutrophils 7.1 10^3/ul (1.5-7.7); ABS Nucleated RBC 0 10^3/ul; Hematocrit 45 % (42-52); Hemoglobin 15.7 g/dl (14.0-18.0); Lymphocyte % 21.9 % (25-47); Mean Corpuscular HGB Conc 35 g/dl (31-36); Mean Corpuscular Hemoglobin 31 pg (27-31); Mean Corpuscular Volume 89 fL (80-94); Mean Platelet Volume 8.3 um3 (7.4-10.4); Nucleated Red Blood Cells % 0; Platelet Count 200 10^3/ul (150-450); Red Blood Count 5.06 10^6/ul (4.00-5.40); Red Cell Distribution Width 13 % (10.5-15); White Blood Count 10.4 10^3/ul (3.5-10.8)
[2018-03-26 13:28] LABS: EGFR Non-African American 36.9 (>60)
[2018-03-26] MEDS ORDERED: Acetaminophen TAB* 325 MG PO PRN (14:31)
[2018-03-26] MEDS ORDERED: hydrOXYzine HCL TAB* 50 MG PO PRN (14:33)
[2018-03-26] MEDS: Carvedilol TAB* 3.125 MG PO SCH (21:25)
[2018-03-27] MEDS: Levothyroxine TAB* 75 MCG TAB PO SCH (06:07)
[2018-03-27] MEDS: FluvoxaMINE (NF) 50 MG TAB PO SCH (10:10)
[2018-03-27] MEDS: Carvedilol TAB* 3.125 MG PO SCH ×2 (10:11→21:46)
[2018-03-27] MEDS: BuPROPion XL* 300 MG TAB.XL PO SCH (10:11)
[2018-03-27] MEDS ORDERED: clonazePAM TAB(*) 0.5 MG PO PRN (12:41)
--- NOTE | 2018-03-27 12:59 | HP ---
H&P (Free Text) History and Physical: JUSTIFICATION FOR ADMISSION: Patient presented to emergency room with suicidal ideation and plan to OD on his medications, worsening depression, isolation and loneliness. He requires inpatient psychiatric admission in order to provide treatment and stabilization as he is a danger to himself. CHIEF COMPLAINT: "I think I am lonely that is why I was having thoughts to overdose on my medications HISTORY OF THE PRESENT ILLNESS: Patient is a 33 y/o male, single, living by himself, employed at [employer] , with history of disorder mood symptoms and suicidal thoughts with plan?ADHD. Patient was admitted to inpatient unit for worsening of his depression, anhedonia, decrease energy level, socially withdrawn, losing interest in life, and was having suicidal thoughts with plan to overdose on his medications and was afraid of his safety. Patient drove to the hospital for a mhe and requested voluntary admission. Patient has been compliant with his medications and was requesting to be restarted on stimulatn as that helps him wake up from the effect of Latuda and Ativan. Patient reportedly has been struggling with social relationships especially has been craving for romanitc relationship. Clif has been going on websites to meet up groups or individual that shares his interest. Patient reports no manic symptoms. Patient reports no psychotic symptoms other than occasional paranoia in social situation. Patient denied any suicidal or homicidal ideation at this time on the unit. Patient continued to exhibit behavior that is in control and was asking for staff pass already. PAST PSYCHIATRIC HISTORY: Patient has history of multiple inpatient psychiatric hospitalization. Patient has history of compliance with outpatient psychiatric treatment at [facility] for both med management and therapy. Patients medication trials have been of stimulants, trazodone, latuda, zyprexa. Patient has history of suicidal thoughts and plan but no attempt. No history of self injurious behavior. Patient has history of no homicidal threats, intent or attempt. Patient has no history of aggressive and agitated behavior when decompensates. No access to firearm reported. Patient reports having a diagnosis of bipolar disorder, but he denied having ever experienced manic or hypomanic symptoms. He endorses anxiety in social situations. He denies excessive worrying, feeling tense or irritable. He denies obsessive thoughts or compulsive rituals. He denied psychotic symptoms other than transient and occasional paranoid ideation in social situations. SUBSTANCE ABUSE HISTORY: Patient reports no substance or alcohol abuse. 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 Urine toxicology was negative. PAST MEDICAL HISTORY: Adult Polycystic Kidney, HTN, Hypothyroidism, Dyslipidemia ALLERGIES: NKA FAMILY PSYCHIATRIC HISTORY: The patient described family history of depression in his (now ) mother. Patient reprots that she dies of ruptured brain aneurysm. Patient's sister and nieces also have depression. Patient denied any family history of completed suicides. Patient has no interaction with paternal side of his family. No known reported substance abuse in family. FAMILY/PSYCHOSOCIAL HISTORY: Patient currently lives by himself in [facility]. Patient is not but had previous 3 or 4 romantic relationship. Patient reprots longest last for about a year and a half. Patient is currently not in any relationship and has limited social or friends unga. Patient support system includes his sister's family and coworkers at his workplace. 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 Patient education level is three years of college but did not complete due to financial reasons. Patient was [place] [facility] by his single mother. Patient mother worked at the hospital as a nurse. Patient has one elder sister that he is in touch with. Patient gets along with her sister's family more than her sister. Patient has couple of aunt living at some distance and meet them infrequently but did report having a family reunion this summer. Patient enjoys videogames but recently has losing interest in that as well and craving for relationships. REVIEW OF SYSTEMS: Patients review of symptoms was negative for any physical complaint other than some discomfort in abdomen bilaterally around renal area. Patient vital signs reviewed, B.P has been some what elevated. Patients ED physical exam was reviewed which is grossly normal with chronic medical problem of polycystic kidney and uncontrolled HTN, hypothyroidism, dyslipidemia. Physical Exam Summary in E.D: General: well-appearing, no pain distress Skin: warm, color reflects adequate perfusion, dry Head: normal Eyes: EOMI, BILLY ENT: normal Neck: supple, non-tender Respiratory: CTA, breath sounds present Cardiovascular: RRR Abdomen: soft, non-tender Bowel: present Musculoskeletal: normal, strength/ROM intact Neurological: sensory/motor intact, A&O x3 MENTAL STATUS EXAMINATION: Appearance: 33 y/o male, appear stated age, making fair eye contact, cooperative , unkempt, fair hygiene Behavior: in control Gait: normal Abnormal motor activity: none Speech: normal tone and volume, normal rate and rhythm Mood: "lonely" Affect: depressed but reactive Thought process: coherent Thought Content: Suicidal/Homicidal ideation: denied Delusions: none but do rperots having some paranoia in social situations at work where he feels that people are talking bad about him. Obsessions: none Phobia: none Perceptual disturbance: none Attention: fair Orientation: grossly intact Concentration: fair Memory: fair Insight: fair Judgment: fair Impulse control: fair IMPRESSION: Patient with history of mood disorder, ?ADHD, suicidal thoughts and plan but no intent or attempt. Patient currently admitted due to worsening of his depression, anhedonia and suicidal ideation with plan. Patient has also struggled with social relationships and craves for them at this time and reports limited supportive social unga other than his sister's family. Patient is a danger to self if discharged hence will be stabilized on inpatient unit with medication adjustments and therapy. DIAGNOSES: Major Depressive Disorder, recurrent, severe, Personality A traits PLAN: Admit to U on Q 15 min observation. Patient is full code. Patient is on voluntary admission status Integrate patient into the milieu Individual and group psychotherapy MMPI and psychological consult with Dr. Mock. Social work consult for therapy and discharge planning Will hold family meeting with family to increase Data base, if needed. Patient gave informed consent to start the following medications: Patient was continued on his current medications. Patient will be started on Klonopin 0.5 mg BID PRN for benzodiazepine withdrawal. Will hold Stimulant due to concerns of mood instability. Also Hospitalist was called to address patient's Adult polycystic kidney and HTN , will f/u recommendations. Will continue to monitor and f/u for improvement and side effects. Salvador Vásquez MD Attending Psychiatrist
[2018-03-27] MEDS ORDERED: amLODIPine TAB* 5 MG PO ONE (13:40)
[2018-03-27 14:59] LABS: Urine Appearance Clear; Urine Blood 1+ (Negative); Urine Color Straw; Urine Ketones Negative (Negative); Urine Protein Negative (Negative); Urine Red Blood Cell 1+(3-5/hpf) (Absent); Urine Specific Gravity 1.012 (1.010-1.030); Urine Urobilinogen Negative (Negative); Urine White Blood Cell Trace(0-5/hpf) (Absent)
--- NOTE | 2018-03-27 15:59 | RAD ---
Indication: Polycystic kidney disease. Real-time sonography of the kidneys was performed. The right kidney measures 12.2 x 6.6 x 6.3 cm. Multiple cysts are present throughout the kidney. Findings are consistent with polycystic kidney disease. Upper pole cyst measures 3.8 x 3.1 x 3.3 cm. Lateral cyst measures 2.7 x 3.1 x 3.1 cm. Calculus is noted in the right renal hilum however no definite hydronephrosis is noted. The left kidney measures 11.2 x 5.7 x 5.1 cm. Innumerable calcifications are noted in the left kidney with the lower pole measuring 4.6 x 3.5 x 4.4 cm and 4.3 x 4.0 x 3.9 cm. Calcification is noted in the left renal hilum measuring up to 0.8 cm. No hydronephrosis is noted. IMPRESSION: Bilateral cysts with nonobstructing calculi in both kidneys. No hydronephrosis is noted.
--- NOTE | 2018-03-27 22:16 | CONS ---
CONSULTATION REPORT: DATE OF CONSULT: 03/27/18 PROVIDER: Maximiliano Davis NP ATTENDING PHYSICIAN: Dr. Patton (report dictated by Maximiliano Davis NP). REFERRING PHYSICIAN: Dr. Vásquez. PRIMARY CARE PROVIDER: No PCP. Per the patient, he was seeing Dr. Rowdy Clements; however, he was fired from that practice due to no shows. DENTAL ASSISTANT TEACHER: Dr. Larose, [place], [place]. REASON FOR CONSULT: Abdominal pain and history of polycystic kidney disease. HISTORY OF PRESENT ILLNESS: Mr. Abrams is a 33-year-old male who was admitted to the mental health unit on 03/26/18 after he presented to the emergency department with complaint of suicidal ideation. The patient has a past medical history of previous psychiatric admissions, mood disorder with paranoid personality disorder, depression, suicidal ideation, ADHD, polycystic kidney disease, hypothyroidism, hypertension, and hyperlipidemia. Hospital Medicine was asked to consult regarding the patient's concern of recently missed Nephrology appointment this past Saturday, noted mild hypertension on this admission, and the patient's complaint of "bilateral kidney pain." The patient was seen and evaluated in the unit and which the patient reports that he had had blood work a couple weeks ago in [place] and was to follow up with his swage toolsetter on Saturday; however, he missed that appointment due to oversleeping. It is noted that the patient's creatinine on admission appears to be around his baseline of 2 and which the patient confirms. The patient also reports that starting 2 to 3 months ago, in the morning only, worse upon waking, he has bilateral abdominal discomfort that appears to resolve throughout the day. He reports this as "kidney pain." He denies flank or back pain. Denies ever having this type of pain before in the past. He reports he did have a renal ultrasound several months ago, but this was prior to this pain starting. It has not gotten worse or any better over the past 2 to 3 months, but has remained consistent. He denies nausea, vomiting. No urinary symptoms. Denying dysuria, hematuria, increased urinary frequency. Denies fevers or chills. He also reports that he was taken off his valsartan due to his renal function within the last year and was not started on another medication. PAST MEDICAL HISTORY: 1. Polycystic kidney disease. 2. Hypothyroidism. 3. Hypertension. 4. Hyperlipidemia. 5. Depression. 6. Bipolar. 7. ADHD. 8. Personality disorder. 9. History of suicidal ideation. HOME MEDICATIONS: 1. Synthroid 75 mcg p.o. daily. 2. Coreg 3.125 mg p.o. b.i.d. 3. Concerta 54 mg p.o. q.a.m. 4. Bupropion XL 300 mg p.o. q.a.m. 5. Fluvoxamine maleate 200 mg p.o. q.a.m. 6. Ativan 0.5 mg p.o. t.i.d. p.r.n. Current medications reviewed and appreciated. FAMILY HISTORY: Reviewed and appreciated. SOCIAL HISTORY: Denies tobacco abuse. Rare alcohol use. He lists his sister as a person to notify, Jacquiesingh Slaughter. REVIEW OF SYSTEMS: A 14-point review of systems was performed. All the pertinent positives and negatives are mentioned in the history of present illness. Otherwise are negative. PHYSICAL EXAM: Vital Signs: Temperature 97.5, heart rate 62, respirations 18, pulse oximetry 98% on room air, blood pressure 148/84. General Appearance: A well- developed, 33-year-old male, alert and oriented x3, in no acute distress. HEENT: Head is normocephalic and atraumatic. Pupils are equal and reactive to light. Oropharynx is clear. Moist mucous membranes. Cardiac: S1, S2. Regular rate and rhythm. No murmur, rub, or gallop appreciated. No lower extremity edema noted. Lungs are clear to auscultation bilaterally with good aeration throughout. Abdomen: Slightly obese, soft, nontender. No CVA tenderness. Normal bowel sounds throughout. Extremities: Moves all extremities. Steady gait. Musculoskeletal: No spinal tenderness with palpation. Has good range of motion flexing and extending hips. Neuro: Alert and oriented x3. No focal deficits noted. DIAGNOSTIC STUDIES/LAB DATA: Please note these labs are from yesterday, . WBC is 10.4, RBC 5.06, Hgb 15.7, Hct 45, MCV 89, MCH 31, MCHC 35, RDW 13, platelet count 200. Sodium 137, potassium 4.1, chloride 106, carbon dioxide 29 , anion gap 2, BUN 31, creatinine 2.06, glucose 110, hemoglobin A1c 5.5, calcium 9.3. Total bilirubin 0.30, AST 16, ALT 18, alkaline phosphatase 61. Total protein 7.3, albumin 4.0. Triglycerides 170, cholesterol 147, HDL 35, LDL 78. TSH 0.79. Urinalysis: 1+ blood, otherwise unremarkable. ASSESSMENT AND PLAN: Mr. Abrams is a 33-year-old male with a past medical history of long-term polycystic kidney disease, hypertension, hyperlipidemia, hypothyroidism, and psychiatric disorders, who was admitted to behavioral health unit for suicidal ideation. Hospital Medicine was asked to consult regarding the patient's concern about missed Nephrology appointment, hypertension, and the patient's report of abdominal pain. 1. Abdominal pain. Most likely, this is secondary to his polycystic kidney disease. I could not elicit any pain on exam. This appears to be chronic in nature. We will obtain a renal ultrasound to assess kidneys. He did have a recent renal ultrasound in [place] approximately 5 or 6 months ago per the patient. We will try to obtain those record. Urinalysis shows 1+ blood, otherwise there are no signs of infection. 2. Polycystic kidney disease. In regards to the patient's concern about his missed Nephrology appointment, I instructed the patient to call himself or have the staff here call to reschedule his appointment. As well, it would great if we can have any records faxed to us. He was most concerned about his creatinine , which appears to be around his baseline. 3. Hypertension. As stated in the HPI, the patient was recently taken off his valsartan. His blood pressures are running a little high, systolically 130 to 150s. We will add on Norvasc and continue his Coreg at this time. 4. Hypothyroidism. Continue Synthroid. 5. DVT prophylaxis. Ambulatory. We will follow up on renal ultrasound. I have discussed with staff to call Dr. Larose's office in [place] to get records faxed to us. TIME SPENT: Approximately 45 minutes was spent on this consultation. MAXIMILIANO DAVIS, ORIENTOR [id number]/[facility] #: [id number] JENNIFER
[2018-03-28] MEDS: Al Hydrox/Mg Hydrox/Simet LIQ* 30 ML UDC PO PRN ×2 (00:35→12:07)
[2018-03-28] MEDS: Levothyroxine TAB* 75 MCG TAB PO SCH (05:57)
[2018-03-28 08:16] VITALS: BP 134/89
[2018-03-28] MEDS ORDERED: amLODIPine TAB* 5 MG PO SCH (09:00)
[2018-03-28] MEDS: BuPROPion XL* 300 MG TAB.XL PO SCH (09:38)
[2018-03-28] MEDS: Carvedilol TAB* 3.125 MG PO SCH (09:38)
[2018-03-28] MEDS: FluvoxaMINE (NF) 50 MG TAB PO SCH (09:39)
--- NOTE | 2018-03-28 12:42 | DS ---
Subjective - Subjective Service Types: 87[address] [facility] Day Mgmt simple under 30 min Discharge Date: 03/28/18 Subjective: JUSTIFICATION FOR ADMISSION: Patient presented to emergency room with suicidal ideation and plan to OD on his medications, worsening depression, isolation and loneliness. He requires inpatient psychiatric admission in order to provide treatment and stabilization as he is a danger to himself. CHIEF COMPLAINT: "I think I am lonely that is why I was having thoughts to overdose on my medications HISTORY OF THE PRESENT ILLNESS: Patient is a 33 y/o male, single, living by himself, employed at [employer] , with history of disorder mood symptoms and suicidal thoughts with plan?ADHD. Patient was admitted to inpatient unit for worsening of his depression, anhedonia, decrease energy level, socially withdrawn, losing interest in life, and was having suicidal thoughts with plan to overdose on his medications and was afraid of his safety. Patient drove to the hospital for a mhe and requested voluntary admission. Patient has been compliant with his medications and was requesting to be restarted on stimulatn as that helps him wake up from the effect of Latuda and Ativan. Patient reportedly has been struggling with social relationships especially has been craving for romanitc relationship. Clif has been going on websites to meet up groups or individual that shares his interest. Patient reports no manic symptoms. Patient reports no psychotic symptoms other than occasional paranoia in social situation. Patient denied any suicidal or homicidal ideation at this time on the unit. Patient continued to exhibit behavior that is in control and was asking for staff pass already. PAST PSYCHIATRIC HISTORY: Patient has history of multiple inpatient psychiatric hospitalization. Patient has history of compliance with outpatient psychiatric treatment at [facility] for both med management and therapy. Patients medication trials have been of stimulants, trazodone, latuda, zyprexa. Patient has history of suicidal thoughts and plan but no attempt. No history of self injurious behavior. Patient has history of no homicidal threats, intent or attempt. Patient has no history of aggressive and agitated behavior when decompensates. No access to firearm reported. Patient reports having a diagnosis of bipolar disorder, but he denied having ever experienced manic or hypomanic symptoms. He endorses anxiety in social situations. He denies excessive worrying, feeling tense or irritable. He denies obsessive thoughts or compulsive rituals. He denied psychotic symptoms other than transient and occasional paranoid ideation in social situations. SUBSTANCE ABUSE HISTORY: Patient reports no substance or alcohol abuse. 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 Urine toxicology was negative. PAST MEDICAL HISTORY: Adult Polycystic Kidney, HTN, Hypothyroidism, Dyslipidemia ALLERGIES: NKA FAMILY PSYCHIATRIC HISTORY: The patient described family history of depression in his (now ) mother. Patient reprots that she dies of ruptured brain aneurysm. Patient's sister and nieces also have depression. Patient denied any family history of completed suicides. Patient has no interaction with paternal side of his family. No known reported substance abuse in family. FAMILY/PSYCHOSOCIAL HISTORY: Patient currently lives by himself in [facility]. Patient is not but had previous 3 or 4 romantic relationship. Patient reprots longest last for about a year and a half. Patient is currently not in any relationship and has limited social or friends [place]. Patient support system includes his sister's family and coworkers at his workplace. 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 Patient education level is three years of college but did not complete due to financial reasons. Patient was raised in [place] around [facility] by his single mother. Patient mother worked at the hospital as a nurse. Patient has one elder sister that he is in touch with. Patient gets along with her sister's family more than her sister. Patient has couple of aunt living at some distance and meet them infrequently but did report having a family reunion this summer. Patient enjoys videogames but recently has losing interest in that as well and craving for relationships. REVIEW OF SYSTEMS: Patients review of symptoms was negative for any physical complaint other than some discomfort in abdomen bilaterally around renal area. Patient vital signs reviewed, B.P has been some what elevated. Patients ED physical exam was reviewed which is grossly normal with chronic medical problem of polycystic kidney and uncontrolled HTN, hypothyroidism, dyslipidemia. Physical Exam Summary in E.D: General: well-appearing, no pain distress Skin: warm, color reflects adequate perfusion, dry Head: normal Eyes: EOMI, BILLY ENT: normal Neck: supple, non-tender Respiratory: CTA, breath sounds present Cardiovascular: RRR Abdomen: soft, non-tender Bowel: present Musculoskeletal: normal, strength/ROM intact Neurological: sensory/motor intact, A&O x3 MENTAL STATUS EXAMINATION ON ADMISSION: Appearance: 33 y/o male, appear stated age, making fair eye contact, cooperative , unkempt, fair hygiene Behavior: in control Gait: normal Abnormal motor activity: none Speech: normal tone and volume, normal rate and rhythm Mood: "lonely" Affect: depressed but reactive Thought process: coherent Thought Content: Suicidal/Homicidal ideation: denied Delusions: none but do rperots having some paranoia in social situations at work where he feels that people are talking bad about him. Obsessions: none Phobia: none Perceptual disturbance: none Attention: fair Orientation: grossly intact Concentration: fair Memory: fair Insight: fair Judgment: fair Impulse control: fair IMPRESSION: Patient with history of mood disorder, ?ADHD, suicidal thoughts and plan but no intent or attempt. Patient currently admitted due to worsening of his depression, anhedonia and suicidal ideation with plan. Patient has also struggled with social relationships and craves for them at this time and reports limited supportive social [place] other than his sister's family. Patient is a danger to self if discharged hence will be stabilized on inpatient unit with medication adjustments and therapy. DIAGNOSIS On ADMISSION: Major Depressive Disorder, recurrent, severe, Personality A traits DIAGNOSIS ON DISCHARGE: Adjustment Disorder with depression and anxiety, Personality A traits Objective - Appearance Appearance: Healthy Appearing Dysmorphic Features: No Hygiene: Normal Grooming: Fairly Well Kept - Behavior Psychomotor Activities: Normal Exhibits Abnormal Movement: No - Attitude and Relatedness Attitude and Relatedness: Cooperative Eye Contact: Fair - Speech Quality: Unpressured Latencies: Normal Quantity: Appropriate - Mood Patient's Decription of Mood: "Okay" - Affect Observed Affect: Fair Affect Consistent with: Euthymia - Thought Process Patient's Thought Process: Coherent Thought Content: No Passive Wish, No Suicidal Planning, No Homicidal Ideation, No Paranoid Ideation - Sensorium Experiencing Hallucinations: No, Sensorium is Clear Type of Hallucinations: Visual: No, Auditory: No, Command: No - Level of Consciousness Level of Consciousness: Alert Orientation: Yes Intact, Yes Orientated to Time, Yes Orientated to Place, Yes Orientated to Person - Impulse Control Impulse Control: Intact - Insight and Judgement Insight and Judgement: Fair - Group Participation Particating in Group Activities: Yes - Medication Management Medication Management Adherence: Yes Treatment Course & Assessment Clinical Course & Impression: Patient with history of mood disorder, ?ADHD, suicidal thoughts and plan but no intent or attempt. Patient currently admitted due to worsening of his depression, anhedonia and suicidal ideation with plan. Patient has also struggled with social relationships and craves for them at this time and reports limited supportive social [place] other than his sister's family. Patient is a danger to self if discharged hence will be stabilized on inpatient unit with medication adjustments and therapy. Patient was admitted to [facility] on Q 15 min observation. Patient was on voluntary admission status. Patient quickly integrate into the milieu, individual and group psychotherapy. Patient gave informed consent to change his medications. Patient was continued on Wellbutrin XL 300 mg PO QAM and Fluovoxamine 200mg PO daily. Patient was tapered off from Benzodiazepine and discontinued from stimulant. Patient was given psychoedcation around medication changes and side effects that can alter his mood and worsen his anxiety. Patient agreed to it. Patient was started on Klonopin 0.5 mg BID PRN for benzodiazepine withdrawal but did not show any sign of withdrawal but some some anxiety. Also Hospitalist was called to address patient's Adult polycystic kidney and HTN. Patient was continue to monitor and followed up for improvement and side effects. Patient toelrated medication changes very well. Patient was feeling better, not suicidal and taking care of his need participating in treatment. Patient mood was stable, denied suicidal or homicidal ideation, not psychotic, not manic, appropriately social, attending groups, engaging well with staff and peers. Patient was offered further voluntary stay but he wanted to be discharged and had put in 72 hours notice. Patient was discussed with the team and was not a danger to self and others, caring for himself, hence he was discharged with plan to follow up outpatient treatment from both mental and physical health. Patient agreed with the plan. 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 Discharge Planning - Discharge Planning Discharge Plan: Outpatient Follow Up Recommendations for Continuing Care: Medication Management, Psychotherapy Medications: Current Medications Amlodipine Besylate (Norvasc Tab*) 5 mg PO DAILY [facility] Last Admin: 03/28/18 09:38 Dose: 5 mg Bupropion HCl (Bupropion Xl*) 300 mg PO QAM [facility] Last Admin: 03/28/18 09:38 Dose: 300 mg Carvedilol (Coreg Tab*) 3.125 mg PO BID [facility] Last Admin: 03/28/18 09:38 Dose: 3.125 mg Fluvoxamine Maleate (Fluvoxamine (Nf)) 200 mg PO QAM [facility] Last Admin: 03/28/18 09:39 Dose: 200 mg Levothyroxine Sodium (Synthroid Tab*) 75 mcg PO DAILY@0600 [facility] Last Admin: 03/28/18 05:57 Dose: 75 mcg Discharge Planning: Prescriptions provided for discharge [x] Yes [] No Follow up care details as per social work arrangements. Patient response to discharge plan: [x] eager for discharge [] agreeable with discharge plan [] ambivalent about discharge [] disagrees with discharge today
== END 2018-03-28 13:37 | disposition home or self-care (01) | DRG 882 ==
LOC: ED 11:09 → BSU 14:31
PROVIDERS: ADMIT Psychiatry & Neurology Psychiatry; ATTEND Psychiatry & Neurology Psychiatry
DX: F43.23 Adjustment disorder with mixed anxiety and depressed mood (principal); F33.2 Major depressive disorder, recurrent severe without psychotic features; R45.851 Suicidal ideations; E78.00 Pure hypercholesterolemia, unspecified; I10 Essential (primary) hypertension; F39 Unspecified mood [affective] disorder; F60.0 Paranoid personality disorder; F90.9 Attention-deficit hyperactivity disorder, unspecified type; M19.90 Unspecified osteoarthritis, unspecified site; R45.84 Anhedonia; E78.5 Hyperlipidemia, unspecified; E03.9 Hypothyroidism, unspecified; Z91.19 Patient's noncompliance with other medical treatment and regimen; Z82.49 Family history of ischemic heart disease and other diseases of the circulatory system; Q61.2 Polycystic kidney, adult type
CPT/HCPCS: 36415; 76775; 80053; 80061; 80307; 80320; 80329; 81003; 81015; 83036; 84443; 85025; 87086; 99222; 99238; 99284; A9270-GY; G0480